=== PATIENT | male | born 1960 | race African-American/Black ===

== ENCOUNTER 2020-04-16 11:26 | Inpatient (IN) | payer OTHER ==
[~2020-04-16] VITALS: Ht 182.9 cm; Wt 81.9 kg
[2020-04-16] VITALS (21 sets, daily range): BP systolic 95–116; BP diastolic 62–73
[~2020-04-16 11:26] MED LIST: ADULT LOW DOSE81 MG PO; IBUPROFEN 800800 M1 PO; TOPROL XL25 MG PO; ZPAK PO
[2020-04-16 12:23] LABS: BASOPHILS 0.1 % (0.0-2.0); HEMATOCRIT 27.1 % (42.0-52.0); HEMOGLOBIN 8.9 gm/dL (14.0-18.0); LYMPHOCYTES 7.8 % (24.0-44.0); MCH 26.5 pg (26.0-34.0); MCHC 32.7 g/dL (28.0-37.0); MCV 81.1 fL (80.0-100.0); MONOCYTES 8.5 % (1.0-8.0); PLATELET COUNT 365 thou/uL (150-400); POLYS 83.6 % (36.0-66.0); RBC 3.35 mil/uL (4.50-6.00); RDW 15.4 % (10.5-14.5); WBC 19.1 thou/uL (4.0-11.0)
[2020-04-16 12:26] LABS: ANION GAP 8 mmol/L (7-16); BUN 19 mg/dL (7-18); CALCIUM 8.3 mg/dL (8.5-10.1); CHLORIDE 95 mmol/L (98-107); CO2 27 mmol/L (21-32); CREATININE 0.8 mg/dL (0.7-1.3); GLUCOSE 232 mg/dL (74-106); POTASSIUM 4.5 mmol/L (3.5-5.1); SODIUM 130 mmol/L (136-145)
[2020-04-16 12:33] LABS: INR 1.3; PROTIME 13.2 Seconds (9.3-11.4)
[2020-04-16 12:33] LABS: BE(vivo) 7.7 mmol/L (-2 to +3); HCO3 29.9 mmol/L (22.0-26.0); PCO2 33.5 mmHg (35.0-45.0); PO2 129.6 mmHg (80.0-100.0); pH 7.569 (7.360-7.450)
[2020-04-16 12:36] LABS: ALBUMIN 1.1 g/dL (3.4-5.0); MAGNESIUM 1.8 mg/dL (1.8-2.4); SGOT 149 U/L (15-37); SGPT 318 U/L (30-65); TOTAL BILIRUBIN 0.3 mg/dL (0.2-1.0); TOTAL PROTEIN 6.8 g/dL (6.4-8.2); TROPONIN-I <0.06 ng/mL (<0.06)
[2020-04-16 12:50] LABS: URINE BILIRUBIN NEGATIVE (Negative); URINE BLOOD 2+ (Negative); URINE CLARITY CLEAR; URINE COLOR YELLOW; URINE GLUCOSE-RANDOM* NEGATIVE (Negative); URINE KETONES NEGATIVE (Negative); URINE LEUKOCYTES-REFLEX TRACE (Negative); URINE NITRITE-REFLEX NEGATIVE (Negative); URINE PROTEIN (DIPSTICK) TRACE (Negative); URINE SPECIFIC GRAVITY 1.015 (1.005-1.035)
[2020-04-16 12:57] LABS: SQUAMOUS 4-10 Moderate /LPF (0-3)
[2020-04-16 12:58] LABS: AMORPHOUS URATES Few /LPF (None Seen); BACTERIA-REFLEX None Seen /HPF (None Seen); CASTS None Seen /LPF (None Seen); URINE RBC 3-10 Few /HPF (0-2); URINE WBC-REFLEX 0-5 Rare /HPF (0-5)
--- NOTE | 2020-04-16 13:50 | NUR ---
CONSULTED TO PLACE A CENTRAL LINE FOR A PATIENT IN ER WITH SEPSIS. ORDER AND CONSENT NOTED. A #5F TRIPLE LUMEN CENTRAL LINE WAS PLACED PER HOSPITAL POLICY. LINE WAS TRIMMED TO 25CM AND ADVANCED TO 7CM EXTERNAL. A STAT CHEXT XRAY COMFIRMED LINE IN GOOD POSITION AND LINE RELEASED FOR USE
--- NOTE | 2020-04-16 17:04 | NUR ---
1960-RECEIVED PT FROM Bryanna RODRÍGUEZ AMT UNFORMED YELLOW STOOL.COMPLETE BATH. MRSA SWAB SENT.--VW
--- NOTE | 2020-04-16 21:01 | NUR ---
2049 - PT VOMITTED A MODERATE AMOUNT OF YELLOW MOUCUS-LIKE EMESIS. ZOFRAN GIVEN. ORAL AND ET SUCTIONING PERFORMED. THICK, WHITE TRACHEAL SECRETIONS NOTED. ORAL CARE PROVIDED. PT IS ARROUSABLE TO VERBAL STIMULI AND OPENS HIS EYES WHEN HIS NAME IS CALLED. HE IS ABLE TO WEAKLY SQUEEZE RIGHT HAND AND WIGGLE RIGHT TOES ON COMMAND. DOES NOT MOVE LEFT ARM OR LEFT TOES ON COMMAND. PERRLA. ORAL TEMP 100.7. WILL CONTINUE TO MONITOR.
--- NOTE | 2020-04-16 22:29 | NUR ---
2224 - SPOKE WITH PT'S DAUGHTER (CARLOS DON). SHE WAS UPDATED ON PT STATUS AND POC. ALL QUESTIONS ANSWERED. SHE STATED THAT PT FELL IN DECEMBER 2019 AND SUFFERED A HEAD INJURY. PER DTR, HE WAS AT [facility] FOR ROUGHLY A MONTH, WHERE TRACH AND PEG TUBE WERE PLACED. HE WAS THEN SENT TO [facility]. 3 WEEKS AGO HE WAS MOVED TO [facility]. DTR EXPRESSED CONCERN FOR HIS CARE AT [facility] AND STATED HE DID NOT HAVE A BED SORE PRIOR TO ADMISSION TO THAT FACILITY. SHE STATED SHE HOPES TO MOVE HIM TO A DIFFERENT FACILITY SOON.
[2020-04-16] MEDS ORDERED: NORVASC 2.5 MG2.5 M1 PO (23:23)
[2020-04-16] MEDS ORDERED: LIPITOR10 MG PO (23:23)
[2020-04-16] MEDS ORDERED: ASCORBIC ACID500 MG PO (23:24)
[2020-04-16] MEDS ORDERED: CARVEDILOL25 MG PO (23:24)
[2020-04-16] MEDS ORDERED: FAMOTIDINE20 MG PO (23:24)
[2020-04-16] MEDS ORDERED: CLONIDINE HCL0.2 M2 PO (23:25)
[2020-04-16] MEDS ORDERED: DULCOLAX STOOL100 M1 PO (23:25)
[2020-04-16] MEDS ORDERED: VITAMIN B-1100 M2 PO (23:26)
[2020-04-16] MEDS ORDERED: KEPPRA100 MG/1 M PER TUBE (23:26)
[2020-04-16] MEDS ORDERED: BISACODYL10 MG RECTAL (23:27)
[2020-04-16] MEDS ORDERED: TYLENOL325 MG PO (23:29)
[2020-04-16] MEDS ORDERED: PULMICORT0.5 MG/2 M INH (23:33)
[2020-04-16] MEDS ORDERED: CHLORHEXIDINE118 ML PO (23:34)
[2020-04-16] MEDS ORDERED: HEPARIN 1,1000 UNIT/ SUBQ (23:36)
[2020-04-16] MEDS ORDERED: IPRAT-ALBUT 0.5-3 ML INH (23:46)
[2020-04-16] MEDS ORDERED: MULTIVITAM9 MG/15 M1 PER TUBE (23:47)
[2020-04-16] MEDS ORDERED: SANTYL OINTMENT30 G1 TOP (23:48)
[2020-04-16] MEDS ORDERED: ANTACID325 MG PER TUBE (23:50)
[2020-04-17] VITALS (40 sets, daily range): BP systolic 99–133; BP diastolic 61–81
--- NOTE | 2020-04-17 03:12 | NUR ---
PT HAS BEEN SLEEPING MOST OF THE NIGHT. HE DOES OPENS HIS EYES AND RESPOND TO VERBAL OR PAINFUL STIMULI. NO SEDATION NEEDED WHILE ON VENT. STRONG COUGH. MODERATE AMOUNT OF TRACHEAL SECRETIONS. HIGHEST TEMP SO FAR TONIGHT HAS BEEN 100.8. ST ON TELE, HR 100-110S. SBP >90 ALL SHIFT. IVF INFUSING ORDERED. COMPLETE BED BATH GIVEN. DRESSING CHANGED TO SACRAL DECUB ULCER; FOUL-SMELLING DRAINAGE NOTED. REPOSITIONED Q2H. FALL PRECAUTIONS IN PLACE. WRIST RESTRAINTS NOT NEEDED PT DOES NOT TRY TO DISCONNECT ANY MEDICAL EQUIPMENT. PROGRESSING SLOWLY TOWARD POC GOALS. WILL CONTINUE TO MONITOR FURTHER.
[2020-04-17 05:23] LABS: ABSOLUTE NEUTROPHILS 15.9 thou/uL (1.4-8.2); BASOPHILS 0.3 % (0.0-2.0); EOSINOPHILS 0.2 % (0.0-3.0); HEMATOCRIT 28.7 % (42.0-52.0); HEMOGLOBIN 9.3 gm/dL (14.0-18.0); LYMPHOCYTES 7.3 % (24.0-44.0); MCH 26.5 pg (26.0-34.0); MCHC 32.3 g/dL (28.0-37.0); MCV 82.1 fL (80.0-100.0); MONOCYTES 8.1 % (1.0-8.0); PLATELET COUNT 391 thou/uL (150-400); POLYS 84.1 % (36.0-66.0); WBC 18.8 thou/uL (4.0-11.0)
[2020-04-17 05:43] LABS: CREATININE 0.5 mg/dL (0.7-1.3)
[2020-04-17 06:02] LABS: POTASSIUM 3.2 mmol/L (3.5-5.1)
[2020-04-17 08:09] LABS: BE(vivo) 4.9 mmol/L (-2 to +3); HCO3 28.3 mmol/L (22.0-26.0); PCO2 37.1 mmHg (35.0-45.0); PO2 99.2 mmHg (80.0-100.0)
--- NOTE | 2020-04-17 13:01 | NUR ---
PER ISH MORRIS DC FROM [facility] ISOLATION
--- NOTE | 2020-04-17 19:36 | NUR ---
PT COVID (-) X1. [facility] DC ENHANCED PRECAUTIONS. SEEN BY WOUND CARE. PLAN FOR SURGERY TO EVAL TOMORROW. PAGED DR CRENSHAW TO START TUBE FEED AT 1830, NO RESPONSE. CIO TO DO DRESSING CHANGE ON SACRAL WOUND.
[2020-04-18] VITALS (39 sets, daily range): BP systolic 102–143; BP diastolic 62–91
[2020-04-18 05:24] LABS: ABSOLUTE NEUTROPHILS 12.9 thou/uL (1.4-8.2); BASOPHILS 0.1 % (0.0-2.0); EOSINOPHILS 0.5 % (0.0-3.0); HEMATOCRIT 27.4 % (42.0-52.0); HEMOGLOBIN 8.7 gm/dL (14.0-18.0); LYMPHOCYTES 9.3 % (24.0-44.0); MCH 26.4 pg (26.0-34.0); MCHC 31.9 g/dL (28.0-37.0); MCV 82.7 fL (80.0-100.0); MONOCYTES 7.3 % (1.0-8.0); PLATELET COUNT 399 thou/uL (150-400); POLYS 82.8 % (36.0-66.0); RBC 3.31 mil/uL (4.50-6.00); WBC 15.6 thou/uL (4.0-11.0)
[2020-04-18 05:31] LABS: BE(vivo) 0.5 mmol/L (-2 to +3); HCO3 23.4 mmol/L (22.0-26.0); PCO2 31.5 mmHg (35.0-45.0); PO2 156.5 mmHg (80.0-100.0); pH 7.488 (7.360-7.450); sO2 99.2 % (92.0-98.0)
[2020-04-18 05:41] LABS: CALCIUM 7.7 mg/dL (8.5-10.1); CREATININE 0.6 mg/dL (0.7-1.3); PHOSPHORUS 3.4 mg/dL (2.5-4.9)
[2020-04-18 05:45] LABS: POTASSIUM 2.8 mmol/L (3.5-5.1)
--- NOTE | 2020-04-18 06:26 | NUR ---
WET TO DRY DRESSING DONE TO HIS SACRAL WOUND.OPENS EYES.REPOSITIONED.POTASIUM LEVEL 2.8 THIS AM.ORDER RECEIVED FROM PROPERTY MAN.MONITOR SHOWS SINUS TACH.POC CONTINUED.
--- NOTE | 2020-04-18 07:51 | EKG ---
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 1960 Requested By: Leander Guerra Order Number: [id number] MD: Gonzalez Rivas Measurements Intervals [place] Rate: 133 P: 46 ND: 137 QRS: 2 QRSD: 70 T: 55 QT: 305 QTc: 454 Interpretive Statements Sinus tachycardia Left atrial enlargement Abnormal R-wave progression, early transition Artifact in lead(s) I,III,aVR,aVL No previous ECG available for comparison Electronically Signed On 04-18-2020 7:51:24 CDT by Gonzalez Rivas [email or web address] <ELECTRONICALLY SIGNED> By: Gonzalez Rivas MD, [facility] 04/18/20 0751 1154 1154 Gonzalez Rivas MD, [facility] /EPI
--- NOTE | 2020-04-18 10:00 | NUR ---
0700 RECEIVED REPORT FROM ASHLEY RAMIREZ. [address] FOR CT OF ABD. [address]
--- NOTE | 2020-04-18 11:32 | NUR ---
Please clarify if pt was taking any oral intake prior to admission. If needs to be on sole enteral nutrition, recommend formula Pivot 1.5 at 65ml/hr. Defer fluid needs to physician
--- NOTE | 2020-04-18 16:05 | NUR ---
chart review. report from bedside nurse, from [facility]. cm consult family wants to look for new place for yue. cm left message with daughter kamila requested call back. need to verify if pt is in ltc or r[facility] side of [facility]. unable to visit with pt rt on vent. daughter called cm back " he is 24hr care, wish he could do apartment side but he needs to much. use wheel chair, shower chair. hospital bed, grab bars, incont of b and b. facility manage medication and meals. told that he will be moving to [place] location. thank you for calling"/daughter and chart. will cont following as needed for dc needs.
--- NOTE | 2020-04-18 17:28 | NUR ---
SPOKE WITH DAUGHTER CARLOS, UPDATED HER TO HER FATHER'S STATUS AND PLAN OF CARE FOR THE WEEK. QUESTIONS ANSWERED AND REASSURANCE GIVEN.
--- NOTE | 2020-04-18 23:16 | NUR ---
ASSUMED PT CAREAT 1900, PT IS AWAKE, ALERT, NON VERBAL AND UNABLE TO FOLLOW COMMANDS, ASSESSMENTS CHARTED, VSS, ST ON THE MONITOR, DRESSING CHANGE COMPLETED, PAIN MEDICATION ADMINISTERED PRN ORDERED, PT TRANSFERRED TO CCU ROOM 216, REMAINS ON A VENTILLATOR, NO ISSUES NOTED
--- NOTE | 2020-04-19 02:07 | NUR ---
PT TRANSFERED FROM ICU ACCOMPANIED BY STAFF VIA BED.PT ON VENT/TRACH.A/O TO SELF,NON-VERBAL, LEFT SIDED HEMIPARESIS,DO FOLLOW SIMPLE COMMANDS,IN NO ACUTE DISTRESS.OPEN EYES SPONTANEOUSLY.ON MONITOR SINUS TACHY.ABD SOFT,NON TENDER,ACTVE,BOWEL SOUNDS PRESENT L5LWAHH. PEG TUBE PRESENT,CRAMPED.NPO AFTER MIDNOC FOR POSSIBLE WOUND DEBRIDEMENT TODAY.LYONS DD, YELLOW URINE.SACRAL WOUND COVERED WITH DRESSING,CDI,RIGHT HIP W/FOAM DRESSING CDI,LEFT DECUB W/FOAM DRESSING,CDI.PRAFO BOOTS IN PLACE.IVF INFUSING PER ORDERS,REPLACING POTASSIUM.PLAN IS TO CONT WITH ANTIBIOTICS W/POSSIBLE WOUND DEBRIDEMENT TODAY.NEB TX PER RT.WILL CONT TO MONITOR PER POC.
[2020-04-19 04:36] VITALS: BP 144/84
[2020-04-19 06:40] LABS: CREATININE 0.5 mg/dL (0.7-1.3); POTASSIUM 3.4 mmol/L (3.5-5.1)
[2020-04-19 07:05] LABS: BE(vivo) 1.1 mmol/L (-2 to +3); HCO3 24.6 mmol/L (22.0-26.0); PCO2 35.2 mmHg (35.0-45.0); PO2 109.2 mmHg (80.0-100.0); pH 7.463 (7.360-7.450); sO2 98.3 % (92.0-98.0)
[2020-04-19 09:30] VITALS: BP 97/70
--- NOTE | 2020-04-19 09:33 | HC ---
[facility] [place] [address] CONSULTATION Name: KELTON WANG Room #: 216-P [facility] IN .R.#: [id number] Admission: 04/16/20 Attend Phys: Amado Vidales Discharge: Date of : 60 Report #: [id number] THIS REPORT FOR: cc: SAMUEL - Elidia family physician/PCP SAMUEL - Elidia family physician/PCP Teddy Montero MD ~ CC: SAMUEL physician/PCP Amado Vidales DATE OF SERVICE: 04/17/2020 WOUND CARE CONSULTATION NOTE REASON FOR CONSULTATION: Necrotic sacral pressure sore in a patient with respiratory failure, on tracheostomy with sepsis and diabetes mellitus type 2. HISTORY OF PRESENT ILLNESS: The patient is a gentleman with diabetes mellitus type 2, chronic respiratory failure with tracheostomy, who was admitted for sepsis and hypoxemia. The patient is chronically immobile with paraplegia. The patient is clinically septic with respiratory failure and shock. On admission, he was admitted to the ICU. Wound care is consulted due to a large necrotic sacral pressure sore noted. Medical problems include anemia, elevated liver function tests, alcohol abuse, protein-calorie malnutrition, chronic tracheostomy, uncontrolled diabetes mellitus. ALLERGIES: None known. MEDICATIONS: Include albuterol, famotidine, vancomycin, Zofran, meropenem, insulin. PHYSICAL EXAMINATION: GENERAL: Shows an alert gentleman with tracheostomy, on a ventilator. He is paraplegic. LUNGS: He has coarse respiratory secretions. ABDOMEN: Soft with a PEG tube present. Gant bladder catheter. The patient has no colostomy. EXTREMITIES: Examination of the right hip shows a chronic appearing superficial stage 3 pressure ulcer measuring approximately 6 x 3 cm with healthy pink granulation tissue and minimal drainage. Examination of the patient's back shows a very large significant necrotic stage 4 sacral pressure ulcer measuring approximately 10 x 10 cm, the base of which has moist foul smelling necrotic black eschar and foul smelling drainage. Lower extremity exam shows a small unstageable pressure ulcer of the left lateral malleolus with a small blister. This appears minor. The patient is paraplegic. IMPRESSION: [facility] [address] [place] [address] CONSULTATION Name: KELTON WANG Room #: 216-P [facility] IN M.R.#: [id number] Admission: 04/16/20 Attend Phys: Amado Vidales Discharge: Date of : 60 Report #: [id number] 1. Paraplegia with chronic immobility. 2. Respiratory failure with tracheostomy, hypoxemia. 3. Severe protein-calorie malnutrition. 4. Diabetes mellitus type 2 with skin ulcer. 5. Sacral stage 4 pressure ulcer with necrosis, may be causing his sepsis. PLAN: 1. I have ordered half strength Dakin's Kerlix pack to be changed twice daily. Dr. Jani Tovar Surgery team has been consulted. This wound will require surgical debridement and diverting colostomy would be advisable. 2. Stage 3 chronic pressure ulcer of the right hip, ordered Xeroform and a foam border. 3. Blistered unstageable pressure ulcer of the left lateral malleolus, ordered foam border and foam boots. 4. History of alcohol use and elevated liver enzymes. Wound care team will follow. As stated sacral wound is necrotic may be a source of sepsis, will require surgical debridement during colostomy would be advised to improve wound care. <ELECTRONICALLY SIGNED> By: Teddy Montero MD 04/19/20 0933 1224 1247 Teddy Montero MD /nt
[2020-04-19 11:18] VITALS: BP 129/69
[2020-04-19 16:05] VITALS: BP 124/67
[2020-04-19 20:34] VITALS: BP 118/63
[2020-04-19 21:49] VITALS: BP 127/80
[2020-04-20] VITALS (8 sets, daily range): BP systolic 119–149; BP diastolic 7–88
--- NOTE | 2020-04-20 03:46 | NUR ---
ASSESSMENT DOCUMENTED,PT BEEN RESTING IN NO ACUTE DISTRESS,ON VENT VIA TRACH,SPO2 100%.SUCTIONED NEEDED.SINUS TACHY ON MONITOR.LYONS DD,YELLOW URINE W/SEDEIMENTS.PRESSURE ULCERS TO SACRAL,RIGHT HIP AND LEFT ANKLE COVERED WITH DRESSING,CDI.TUBE FEEDINGS INFUSING AT 50CC/HR WITH A GOAL OF 65CC/HR.LESS THAN 30CC REDUAL OBTAINED.IVF.POSSIBLE DISCHARGE IN TWO TO THREE DAYS.WILL CONT TO MONITOR PER POC.
[2020-04-20 05:49] LABS: HEMATOCRIT 21.9 % (42.0-52.0); HEMOGLOBIN 7.1 gm/dL (14.0-18.0); MCH 26.8 pg (26.0-34.0); MCHC 32.6 g/dL (28.0-37.0); MCV 82.3 fL (80.0-100.0); RBC 2.66 mil/uL (4.50-6.00); RDW 14.8 % (10.5-14.5); WBC 15.3 thou/uL (4.0-11.0)
[2020-04-20 05:50] LABS: ALBUMIN 1.1 g/dL (3.4-5.0); CALCIUM 7.3 mg/dL (8.5-10.1); CREATININE 0.6 mg/dL (0.7-1.3); MAGNESIUM 1.3 mg/dL (1.8-2.4); POTASSIUM 3.3 mmol/L (3.5-5.1); TOTAL BILIRUBIN 0.3 mg/dL (0.2-1.0); TOTAL PROTEIN 5.5 g/dL (6.4-8.2)
[2020-04-20 16:29] LABS: HEMOGLOBIN 6.6 gm/dL (14.0-18.0); WBC 13.8 thou/uL (4.0-11.0)
[2020-04-20 16:31] LABS: HEMATOCRIT 20.7 % (42.0-52.0); MCHC 31.7 g/dL (28.0-37.0); MCV 82.1 fL (80.0-100.0); RBC 2.53 mil/uL (4.50-6.00); RDW 14.9 % (10.5-14.5)
--- NOTE | 2020-04-20 17:44 | NUR ---
RECEIVED PT'S CARE AROUND 0735; PT. ON BED; ON VENTILATOR; O2 SAT 100%; PT. AWAKE; ABLE TO MOVE RUE; FEEDING GOING UP 50 ML/H; DURING AM ASSESSMENT PT. AWAKE ALERT; FOLLOW COMMANDS; ST ON THE MONITOR; AM MEDICATION GIVEN; FEEDING TITRATE TO 60 ML/H; 5 ML/ RESIDUAL; WOUND CARE PERFORMED X2; HAD 2 LIQUIDS STOOLS; PER WOUND CARE FECAL MANAGEMENT NEEDED; INSERTED IT; FEEDING CHANGED; NO RESIDUAL DURING THE AFTERNOON; PER DIETITIAN RECOMMENDED FLUSHES 170 ML/Q4H; PHYSICIAN NOTIFIED; HMG 6.6 DROP FROM AM; PHYSICIAN NOTIFIED; NO NEW ORDERS; MONITORING; LOW AIR PUMP REQUESTED & APPLIED; TURNED FROM SIDE TO SIDE THROUGH THE DAY; MAG & K REPLACED; ASSESSMENT CHARGED; FOLLOWING POC; WILL PASS ON REPORT;
[2020-04-20 19:02] LABS: HEMATOCRIT 20.6 % (42.0-52.0)
[2020-04-20 19:08] LABS: HEMOGLOBIN 6.6 gm/dL (14.0-18.0)
--- NOTE | 2020-04-20 21:09 | NUR ---
PT IS ORIENTED X1. PT DAUGHTER CARLOS DON (DPOA) CONTACTED @[id number]. DAUGHTER GAVE CONSENT TO TRANSFUSE BLOOD ORDERED
[2020-04-21] VITALS: BP 140/92
[2020-04-21 03:38] LABS: HEMATOCRIT 24.7 % (42.0-52.0); HEMOGLOBIN 8.1 gm/dL (14.0-18.0); MCH 27.2 pg (26.0-34.0); MCHC 32.9 g/dL (28.0-37.0); MCV 82.6 fL (80.0-100.0); RBC 2.99 mil/uL (4.50-6.00); RDW 15.3 % (10.5-14.5); WBC 10.3 thou/uL (4.0-11.0)
[2020-04-21 03:51] LABS: ALBUMIN 1.2 g/dL (3.4-5.0); CALCIUM 7.5 mg/dL (8.5-10.1); CREATININE 0.5 mg/dL (0.7-1.3); MAGNESIUM 1.5 mg/dL (1.8-2.4); TOTAL BILIRUBIN 0.4 mg/dL (0.2-1.0); TOTAL PROTEIN 5.5 g/dL (6.4-8.2)
[2020-04-21 03:56] LABS: POTASSIUM 2.8 mmol/L (3.5-5.1)
[2020-04-21 04:00] VITALS: BP 138/92
--- NOTE | 2020-04-21 05:40 | NUR ---
PT ALERT BUT NOT ORIENTED. NON-VERBAL. PT NO S/S OF PAIN DURING THIS SHIFT. PT IS ON A VENT. PT TRANSFUSED 1 UNIT DURING THE NIGHT R/T HGB 6.6 AFTER TRANSFUSION HGB 8.1. PT K = 2.8 AND MG 1.3 WITH AM LAB. PROJECT FINANCIAL ANALYST NOTIFIED ORDER OBTAINED TO GIVE KCL 60 MG PER PEG IN DOSES AND RECHECK HGB & MG AFTERWARDS. FIRST DOSE GIVEN AT 0500HRS. ORDER TO GIVE 2MG MG SULFATE X1 WAS ALSO OBTAINED. MEDS GIVEN. SACRAL WOUND TREATMENT COMPLETED PER ORDERS DURING THIS SHIFT. PT TURNED AND REPO Q2H. PT NOTED TO ATTEMPT PULLING THE TRACH OUT. CONTINUING TO MONTITOR.
[2020-04-21 08:38] VITALS: BP 134/81
[2020-04-21 10:30] LABS: MAGNESIUM 1.6 mg/dL (1.8-2.4); POTASSIUM 3.7 mmol/L (3.5-5.1)
[2020-04-21 11:10] VITALS: BP 151/99
--- NOTE | 2020-04-21 13:01 | NUR ---
FAXED REFERRAL TO [facility] SPOKE WITH TONY IN ADM SHE RECEIVED REFERRAL AND WILL REVIEW. DP TO FOLLOW.
--- NOTE | 2020-04-21 15:08 | PATH ---
[facility] [address] [place] [address] PATHOLOGY RPT PROCEDURE Name: PEDRO LUIS VELASCO Room #: 216-P [facility] IN M.R.#: [id number] Admission: 04/16/20 Date of : 60 Discharge: Report #: [id number] Path Case #: [id number] [facility] Accession Number: [id number] . 01 Material submitted: . sacrum - SACRAL DEBRIDEMENT . 01 Clinical history: . Sacral decubitus ulcer . 02 Diagnosis: Sacral debridement: - Skeletal muscle and soft tissue showing marked acute inflammation along with fibrinoid degeneration, history of sacral decubitus ulcer. (IUV:pit 04/21/2020) QTP 04/21/2020 1313 Local . 02 Electronically signed: . Giovanna Davison MD, Pathologist NPI- [id number] . 01 Gross description: . The specimen is received in formalin, labeled "Pedro Luis Velasco, sacral debridement". Received is a segment of dusky orr-almonte skin with attached underlying necrotic-appearing fibroadipose tissue measuring 8.0 x 8.0 x 4.5 cm in greatest dimensions. Sectioning reveals yellow-almonte to dusky pink-orr, necrotic-appearing cut surfaces. The specimen is submitted representatively in cassette A1. (CAA; 04/20/2020) QA/QA 04/20/2020 1616 Local . 02 Pathologist provided ICD-10: M65.9, M60.80 . 02 CPT . 283878 Specimen Comment: A courtesy copy of this report has been sent to [phone] Specimen Comment: [phone] Specimen Comment: Report sent to / DR CRENSHAW Performed at: [address], [place] [id number] MD Wade Larry MD Phone: [phone] Performed at: [address] [id number] [address] [address] PATHOLOGY RPT PROCEDURE Name: PEDRO LUIS VELASCO Room #: 216-P ADM IN M.R.#: [id number] Admission: 04/16/20 Date of : 60 Discharge: Report #: [id number] Path Case #: [id number] MD Giovanna Davison MD Phone: [phone]
[2020-04-21 15:50] VITALS: BP 142/94
--- NOTE | 2020-04-21 16:54 | NUR ---
Case discussed with the care team. [facility] level of care indicated for vent weaning as the pt can not return to his longterm on a vent. He is also in need of ivatb and wound care. The attending spoke with pt's dtr and she is agreeable to [facility] referral ([place] ). Dc raw material planner faxed the referral. Referral discussed with the [facility] liason. They are reviewing and would need auth. They will need to know a duration of his iv atb. Will f/u tomorrow. RN concerned that pt is very distended and may need US.
--- NOTE | 2020-04-21 18:45 | NUR ---
RECEIVED PT'S CARE AROUND 729; PT. ON BED; RESTING WITH EYES CLOSED; O2 SAT 100; ST ON THE MONITOR; DURING ASSESSMENT ALERT TO PERSON; AM MEDICATIONS GIVEN; WOUND CARE PERFORMED BY NURSE WOUND; COMPLETE BED CHANGED; INCREASE DISTENTION NOTICED OVER ABDOMEN; [facility] NOTIFIED DURING ROUNDING; NO NEW ORDER; DR. HICKS NOTIFIED ABOUT POC & NEED OF COMMUNICATING WITH DAUGHTER FOR [facility]; ST. UNDERSTANDING; ST ON THE MONITOR; DURING THE AFTERNOON RECEIVED CALL FROM DR. BRAVO; ORDERS RECEIVED; PT. SCHEDULE FOR PROCEDURE TOMORROW; TRIED TO CONTACT DAUGHTER TO OBTAINED CONSENT; NO ANSWER; VOICE MAIL LEFT; NO CALL BACK; WILL PASS ON REPORT; PT. TURNED FROM SIDE TO SIDE; FEEDING TUBE STARTED; NO RESIDUAL THROUGH THE DAY; ASSESSMENT CHARGED; FOLLOWING POC; WILL PASS ON REPORT;
[2020-04-21 20:40] VITALS: BP 152/88
[2020-04-22 03:09] VITALS: BP 152/87
[2020-04-22 05:56] LABS: HEMATOCRIT 24.8 % (42.0-52.0); HEMOGLOBIN 8.2 gm/dL (14.0-18.0); MCH 27.5 pg (26.0-34.0); MCHC 33.3 g/dL (28.0-37.0); MCV 82.7 fL (80.0-100.0); RDW 14.9 % (10.5-14.5); WBC 10.6 thou/uL (4.0-11.0)
[2020-04-22 06:12] LABS: CALCIUM 8.1 mg/dL (8.5-10.1); CREATININE 0.4 mg/dL (0.7-1.3); MAGNESIUM 1.7 mg/dL (1.8-2.4); POTASSIUM 3.4 mmol/L (3.5-5.1)
--- NOTE | 2020-04-22 07:28 | NUR ---
OSTOMY CARE NOTE; ORDERED RECEIVED LATE YESTERDAY FOR STOMA MARKING, SURGERY NURSES HERE NOW AND CALLING DR BRAVO, PER DR SANCHEZ NEED TO [place] STOMA SITE, WILL FOLLOW PT AFTER SURGERY FOR OSTOMY CARE
--- NOTE | 2020-04-22 07:51 | NUR ---
ASSUMED PT CARE AT 1900, PT IS ALERT TO PERSON, NONVERBAL, SR/ST ON THE MONITOR, REMAINS ON VENT, 02SATS 100% TUBE FEEDING TURNED OFF AT MIDNIGHT FOR PROCEDURE THIS MORNING, DRESSING CHANGE COMPLETED, CALLED DAUGHTER TO OBTAIN CONSENT FOR PROCEDURE TODAY, MEDICATIONS GIVEN ORDERED, VSS. BS STABLE, NO ISSUES OVERNIGHT, PASSED ON REPORT
[2020-04-22 09:28] VITALS: BP 144/94
--- NOTE | 2020-04-22 09:54 | NUR ---
OSTOMY CARE; PT BACK FROM SURGERY, POUCH INTACT, STOMA BUDDED, VIABLE, BEEFY RED, SUPPORT BRIGE IN PLACE, SUPPLIES PLACED AT BS, WILL FOLLOW
[2020-04-22 11:40] VITALS: BP 156/87
--- NOTE | 2020-04-22 14:17 | NUR ---
Pt has surgery for diverting ostomy this am. Dc digital sales planner has faxed clinical update to the [facility]. [facility] can accept the pt once medically cleared by surgery and pending insurance auth. They have submitted for ins auth for possible weekend admission. [facility] form on the chart for ambulance transport should the pt be ready for dc to [facility]ac this weekend. Their liason can be reached at [phone]. A chart copy would be needed and dtr will need to be updated as to dc arrangements and time of transfer. Will follow.
[2020-04-22 16:41] VITALS: BP 125/82
[2020-04-22 20:00] VITALS: BP 143/99
[2020-04-23 00:05] VITALS: BP 125/72
[2020-04-23 04:00] VITALS: BP 121/69
[2020-04-23 06:31] LABS: CALCIUM 7.8 mg/dL (8.5-10.1); CREATININE 0.5 mg/dL (0.7-1.3); MAGNESIUM 1.4 mg/dL (1.8-2.4); PHOSPHORUS 2.5 mg/dL (2.5-4.9); POTASSIUM 3.9 mmol/L (3.5-5.1)
[2020-04-23 06:34] LABS: HEMATOCRIT 26.1 % (42.0-52.0); HEMOGLOBIN 8.6 gm/dL (14.0-18.0); MCH 27.3 pg (26.0-34.0); MCV 82.6 fL (80.0-100.0); PLATELET COUNT 432 thou/uL (150-400); RBC 3.16 mil/uL (4.50-6.00); RDW 15.1 % (10.5-14.5)
[2020-04-23 07:36] VITALS: BP 118/83
[2020-04-23 11:27] VITALS: BP 145/93
[2020-04-23 11:53] LABS: HEMATOCRIT 26.8 % (42.0-52.0); HEMOGLOBIN 9.1 gm/dL (14.0-18.0)
[2020-04-23 15:54] VITALS: BP 156/103
--- NOTE | 2020-04-23 16:31 | NUR ---
PT CARE ASSUMED APPROX 0700. ASSESSMENTS CHARTED. NO APPARENT PAIN NOTED. VSS. BS WNL. KUB SHOWED ILEUS. POC UPDATED. TONY WITH [facility] GIVEN CLINICAL UPDATE THAT DISCHARGE WILL NEED TO BE HELD OFF TODAY. PT TOLERATING POC. TURNING Q2 HRS AND PRN. NO DISTRESS NOTED.
--- NOTE | 2020-04-23 17:33 | NUR ---
DR JUAN AND SURGEON BOTH MADE AWARE DURING ROUNDS OF PT'S COLOSTOMY OUTPUT AMOUNT AND COLOR. NO CONCERNS FROM DRs. NO NEW ORDERS.
[2020-04-23 18:47] VITALS: BP 132/76
[2020-04-24] VITALS (7 sets, daily range): BP systolic 13–155; BP diastolic 77–96
--- NOTE | 2020-04-24 01:25 | NUR ---
PT IS AWAKE. LUNGS DIMINISHED. REMAINS ON THE VENT. SINUS TACH ON THE BIOINFORMATICIAN. WOUNDS CARE DONE AND DRESSED AND CHANGED. FECAL MANAGEMENT SYSTEM IN PLACE. AND LYONS PRESENT. TOLERATING TUBE FEEDINGS NO RESIDUAL NOTED. RESTING COMFORTABLY ATEMPTING TO SLEEP. TURN Q 2 HOURS FOR CARE OF PT. BOOTS ON BILAERAL WITH SCDS ON . WILL CONTINUE TO ASSESS AND MONITOR PER NURSING. REMAINS ON THE VENT. MINIMAL SECREATIONS WITH SUCTIONING.
--- NOTE | 2020-04-24 04:22 | NUR ---
PT WOUNDS HAVE BEEN CHANGED AND DRESSING DONE. TURN Q 2 HOURS WITH VENT MSNAGEMT HRMRNY. OPENS HIS EYES. ABDFOMRN ID TOUNF SNF BBOERL SOUNFFS AND TOLERATING TUBE FRREDING OK. CALL LIGHT THIN REACH NI NNER ASSSTTANCE. NO ISSUES OR CONERN NOTED PER HAYLEY
[2020-04-24 05:14] LABS: ABSOLUTE NEUTROPHILS 7.3 thou/uL (1.4-8.2); BASOPHILS 0.2 % (0.0-2.0); EOSINOPHILS 2.1 % (0.0-3.0); HEMATOCRIT 25.2 % (42.0-52.0); HEMOGLOBIN 8.4 gm/dL (14.0-18.0); LYMPHOCYTES 17.7 % (24.0-44.0); MCH 27.5 pg (26.0-34.0); MCHC 33.3 g/dL (28.0-37.0); MCV 82.6 fL (80.0-100.0); PLATELET COUNT 418 thou/uL (150-400); RBC 3.05 mil/uL (4.50-6.00)
[2020-04-24 05:19] LABS: ALBUMIN 1.5 g/dL (3.4-5.0); CALCIUM 8.1 mg/dL (8.5-10.1); CREATININE 0.5 mg/dL (0.7-1.3); MAGNESIUM 1.6 mg/dL (1.8-2.4); POTASSIUM 3.7 mmol/L (3.5-5.1); TOTAL BILIRUBIN 0.2 mg/dL (0.2-1.0); TOTAL PROTEIN 6.2 g/dL (6.4-8.2)
--- NOTE | 2020-04-24 16:40 | NUR ---
PT CARE ASSUMED APPROX 0700. ASSESSMENTS CHARTED. PT APPEARED TO BE IN PAIN EARLIER THIS SHIFT. PAIN SEEMINGLY MANAGED BY CURRENT POC. VSS. TOLERATING POC. TURNING PT Q2 HRS AND PRN. TUBE FEEDING STOPPED AFTER NEWEST KUB RESULTS. SURGEON SAW PT'S STOMA AND ACKNOWLEDGES MORE PROTRUSION AND COLOR CHANGE BUT SAYS THERE'S NO NEED FOR CONCERNS AT THIS TIME. HE IS ALSO AGREAABLE TO CURRENT POC TO MANAGE ILEUS WELL GI DR. NO BOWEL MOVEMENT AFTER SUPPOSITORY BUT PT PASSING FLATUS. NO DISTRESS NOTED.
--- NOTE | 2020-04-24 23:21 | NUR ---
PATIENTS CARES WERE ASSUMED AT SHIFT CHANGE. PATIENT WAS ASSESSED AND MEDS WERE PASSED. PATIENT IS UNABLE TO FIX AND FOLLOW. PATIENT IS NONVERBAL. VENT SETTING HAVE NOT BEEN CHANGED, HOURLY ROUNDS DONE. THE BED IS IN A LOW AND LOCKED POSITION
--- NOTE | 2020-04-24 23:44 | NUR ---
PATIENTS CARES WERE PASSED TO ON COMING RN. ALL CARES UP TO DATE AT THE TIME PATIENT WAS PASSED. PATIENT CARES PASSED TO JAMES SWEENEY
[2020-04-25 02:03] LABS: HEMOGLOBIN 8.3 gm/dL (14.0-18.0); MCH 26.6 pg (26.0-34.0); MCHC 32.1 g/dL (28.0-37.0); MCV 82.8 fL (80.0-100.0); RBC 3.13 mil/uL (4.50-6.00)
[2020-04-25 02:11] LABS: CALCIUM 8.4 mg/dL (8.5-10.1); CREATININE 0.4 mg/dL (0.7-1.3); MAGNESIUM 1.5 mg/dL (1.8-2.4); PHOSPHORUS 3.6 mg/dL (2.5-4.9); POTASSIUM 3.5 mmol/L (3.5-5.1)
[2020-04-25 05:10] VITALS: BP 138/83
[2020-04-25 07:30] VITALS: BP 143/85
--- NOTE | 2020-04-25 09:38 | NUR ---
OSTOMY CARE; POUCH EDGES LOOSE, NEW POUCH RENY 2 PIECE SYSTEM APPLIED W/ ADAPT RING UNDER WAFER W/ STOMA PASTE, STOMA RED VIABLE BUDDED, STOMA SUPPORT BRIDGE IN PLACE, NO STOOL YET, PERISTOMA SKIN INTACT, REMAINS ON VENT, COOPERATIVE W/ CARE, SUPPLIES PLACED AT BS RECOMMENDATIONS; CHANGE POUCH Q 3-4 DAYS AND PRN,REMOVE STOMA SUPPORT BRIDGE PER ORDERS DR BRAVO SENIOR POLICY ANALYST AWARE
[2020-04-25 12:00] VITALS: BP 149/98
--- NOTE | 2020-04-25 16:49 | NUR ---
PT CARE ASSUMED APPROX 0700. ASSESSMENTS CHARTED. PT DOES NOT APPEAR TO BE IN PAIN TODAY AND VSS. TOLERATING VENT AND CHANGES MADE TO POC. TURNING PT Q2 HRS AND PRN. CLINICAL UPDATE GIVEN TO PT'S DAUGHTER. SHE DENIES QUESTIONS AFTER. NO DISTRESS NOTED.
[2020-04-25 17:00] VITALS: BP 149/99
[2020-04-25 22:40] VITALS: BP 173/101
[2020-04-26 04:00] VITALS: BP 121/85
--- NOTE | 2020-04-26 05:58 | NUR ---
PT RESTED THROUGH THE NIGHT. VSS. NO SIGNS OF DISTRESS. SACRAL WOULD CARE COMPLETED. Q2 TURNS. NO OTHER CONCERNS NOTED. MINIMAL SACTION NEED. WILL CONTINUE TO MONITOR.
[2020-04-26 08:43] VITALS: BP 152/96
[2020-04-26 11:42] VITALS: BP 16/103
[2020-04-26 16:51] VITALS: BP 152/91
--- NOTE | 2020-04-26 16:54 | NUR ---
PT CARE ASSUMED APPROX 0700. ASSESSMENTS CHARTED. NO APPARENT PAIN NOTED. VSS. TURNING PT Q2HRS AND PRN. WOUND CARE DONE PER ORDER. ABD DISTENDED BUT SOFTER TODAY. TRICKLE TUBE FEEDINGS TOLERATED. PT PASSING GAS THROUGH OSTOMY. NO ACUTE CHANGES NOTED. NO DISTRESS NOTED.
[2020-04-26 20:23] VITALS: BP 151/101
[2020-04-27 04:31] VITALS: BP 149/98
--- NOTE | 2020-04-27 07:50 | NUR ---
ASSUMED PATIENT CARE AT 1845. VITAL SIGNS STABLE WITH NURSE NOT PERCEIVING ANY PAIN ON BEHALF OF PATIENT. BREATHING STABLE ON VENTILATOR EVIDENCED BY ASSESSMENTS AND CONTINUOUS SATURATION MONITORING. COLOSTOMY STILL NOT PRODUCING FECES. APPROXIMATELY 150 CC'S OF GASTROINTESTINAL FLUID PRODUCED. WOUND CARE AND TURNS PER PROVIDER ORDERS. CONTINUE PLAN OF CARE.
[2020-04-27 08:04] VITALS: BP 152/95
--- NOTE | 2020-04-27 08:59 | NUR ---
OSTOMY CARE; STOMA SUPPORT BRIDGE REMOVED PER ORDERS DR BRAVO, STOMA BEEFY RED, VIABLE, BUDDED, NO STOOL YET, PASSING FLATUS, NEW POUCH RENY 2 PIECE SYSTEM CUT TO FIT APPLIED W/ ADAPT RING UNDER WAFER, SLEEPING, COOPERATIVE, SUPPLIES AT BS, WILL CONT TO FOLLOW RECOMMENDATIONS; CHANGE POUCH Q3-5 DAYS AND PRN, 2PIECE RENY SYSTEM ASSET MANAGEMENT LEAD AWARE
--- NOTE | 2020-04-27 10:09 | NUR ---
TF remains trickle feed due ileus. Noting decreasing adominal distention. If unable to start increasing TF rate, then would recommend change IVF to clinimix PPN at 75ml/hr as pt is very malnourished and with wounds.
[2020-04-27 11:28] VITALS: BP 149/104
--- NOTE | 2020-04-27 15:13 | NUR ---
SPOKE WITH TONY IN ADM AT [facility] SHE REQUESTED THE [facility] REC[facility] PHYSIC[facility] [employer] NOTES FAXED THEM AND RECEIVED CONFIRMATION. DP TO FOLLOW.
--- NOTE | 2020-04-27 16:45 | NUR ---
PT CARE ASSUMED APPROX 0700. ASSESSMENTS CHARTED. NO APPARENT PAIN NOTED. PT TOLERATING CPAP AND POC. TURNING PT Q2 HRS AND PRN. WOUND CARE COMPLETED PER ORDERS. NO BM NOTED THIS SHIFT. PT ABD SOFT. TUBE FEEDINGS INCREASED AND PT TOLERATING. NO DISTRESS NOTED.
[2020-04-27 17:03] VITALS: BP 164/108
[2020-04-27 20:58] VITALS: BP 165/108
[2020-04-27 23:40] VITALS: BP 166/116
[2020-04-28 00:36] VITALS: BP 166/116
[2020-04-28 05:04] LABS: CALCIUM 8.2 mg/dL (8.5-10.1); CREATININE 0.5 mg/dL (0.7-1.3); MAGNESIUM 1.3 mg/dL (1.8-2.4); POTASSIUM 3.6 mmol/L (3.5-5.1)
--- NOTE | 2020-04-28 05:08 | NUR ---
patients care was assumed at shift change. patient was assessed and meds were passed. patient is a nonverbal gentalmen. his b/p and heart rate was high starting about 1999. call [facility] to get some medication. the hospitalist need to address this. this man has been her several weeks with no attention to heart rate or b/p. rounds were made. sat in front of his room this shift. the bed is in a low and locked position hourly rounds were made
[2020-04-28 05:11] VITALS: BP 151/92
[2020-04-28 05:54] LABS: HEMATOCRIT 24.4 % (42.0-52.0); HEMOGLOBIN 8.1 gm/dL (14.0-18.0); MCH 27.6 pg (26.0-34.0); MCHC 33.3 g/dL (28.0-37.0); MCV 82.9 fL (80.0-100.0); RBC 2.94 mil/uL (4.50-6.00); RDW 15.6 % (10.5-14.5); WBC 7.5 thou/uL (4.0-11.0)
[2020-04-28 07:56] VITALS: BP 154/93
--- NOTE | 2020-04-28 09:41 | NUR ---
OSTOMY CARE; POUCH INTACT, NO LEAKAGE, NO STOOL YET, ABD SOFT, STOMA REMAINS PINKISH RED VIABLE BUDDED, INFO AND SUPPLIES AT BS RECOMMENDATIONS; CONT OSTOMY CARE W/ RENY APPLIANCES, CHANGING Q3-5 DAYS AND PRN MODULAR HOME CREW MEMBER AWARE
[2020-04-28 11:15] VITALS: BP 154/97
--- NOTE | 2020-04-28 13:57 | NUR ---
FAXED CLINICAL UPDATE TO [facility] RECEIVED CONFIRMATION AND LEFT MSG WITH TONY IN ADM THAT PT IS NOT DISCHARGING TODAY. DP TO FOLLOW.
[2020-04-28 15:25] VITALS: BP 165/89
--- NOTE | 2020-04-28 18:08 | NUR ---
PT ON VENT, TF INFUSING, TURNS Q2 HRS, PT NON VERBAL, PT DID NOT HAVE ANY STOOL FROM OSTOMY TODAY BUT DID HAVE SOME SEROSANGEINOUS DRAINAGE. PT TF AT GOAL WITH NO RESIDUALS. PT DRESSINGS WERE CHANGED BY RN AND WC NURSE EARLIER.
[2020-04-28 19:31] VITALS: BP 142/95
[2020-04-29 04:56] VITALS: BP 151/86
--- NOTE | 2020-04-29 07:51 | NUR ---
patients cares were assumed at shift change. patient was assessed and meds were passed. patient had a bed bath and linen complete change. hourly rounds were done and the bed is in a low and locked position.
--- NOTE | 2020-04-29 10:10 | HC ---
[facility] [place] [address] CONSULTATION Name: KELTON WANG Room #: 216-P [facility] IN M.R.#: [id number] Admission: 04/16/20 Attend Phys: Amado Vidales Discharge: Date of : 60 Report #: [id number] THIS REPORT FOR: cc: [facility] - No family physician/PCP SAMUEL - No family physician/PCP Estuardo Lombardi MD ~ CC: [facility] physician/PCP Amado Vidales GI CONSULT HISTORY OF PRESENT ILLNESS: The patient is a 59-year-old -Hungarian male who I have been asked to see for further evaluation of his significant abdominal distention and suspected ileus. His medical problems are extensive, well outlined in the chart, include necrotic sacral pressure sore with respiratory failure and chronic tracheostomy, diabetes. He has paraplegia as well. He has had elevated liver function tests, alcohol abuse, and anemia. ALLERGIES: He is allergic to no medications. MEDICATIONS: His medications currently include bisacodyl suppositories, albuterol, magnesium sulfate, Reglan 5 mg q. 6 hours p.r.n. IV push, Lovenox, vancomycin IV, famotidine, ondansetron, morphine, meropenem. FAMILY HISTORY: Noncontributory. SOCIAL HISTORY: Noncontributory. REVIEW OF SYSTEMS: Not possible. PHYSICAL EXAMINATION: GENERAL: Afebrile. VITAL SIGNS: Stable. HEENT: Not examined. CARDIOVASCULAR: Not examined. RESPIRATORY: Not examined. ABDOMEN: Reveals significantly distended abdomen with tympany and a protuberant stoma with some serosanguineous fluid in the ostomy bag. There does not appear to be any duskiness of the stoma and it is not acutely tender. EXTREMITIES: Not performed. RECTAL: Not performed. NEUROLOGIC: Not performed. PERTINENT LABORATORY DATA: Include today, hemoglobin 8.4, white count 10.0. INR 1.3. Chemistry notable for magnesium 1.6, calcium 8.1. AST, ALT, alkaline phosphatase, bilirubin normal. Albumin 1.5, total protein 6.2. [facility] [address] [place] [address] CONSULTATION Name: KATHLEENKELTON A Room #: 216-P [facility] IN M.R.#: [id number] Admission: 04/16/20 Attend Phys: Amado Vdiales Discharge: Date of : 60 Report #: [id number] IMAGING STUDIES: Reveal persistent severe paralytic ileus with widespread small bowel and colonic gaseous distention, unchanged from yesterday by KUB. He had a CT scan done on the of the abdomen and pelvis, which revealed no evidence of small bowel obstruction. ASSESSMENT AND PLAN: In summary, the patient has significant ileus without obvious obstruction. This is multifactorial due to hospitalization, bedfast, hypomagnesemia, acute infectious process, sepsis, narcotic pain medications and will improve with improvement of his clinical condition. I would avoid narcotics at this point. Consideration of a repeat CT scan would be in order if his symptoms persist. I do agree with percutaneous endoscopic gastrostomy tube, low intermittent drainage, and holding his tube feeding for now. Serial examinations and attempt to discontinue medications with anticholinergic side effects. We will follow concurrently. Thank you for allowing us to participate in the care of this man. ADDENDUM: I did discuss with the nurse the appearance of the stoma and the surgeon is currently following. <ELECTRONICALLY SIGNED> By: Albin Fam MD 04/29/20 [id number] Estuardo Lombardi MD /nt
--- NOTE | 2020-04-29 11:00 | NUR ---
Final recommended tube feed goal is 65ml/hr. [facility] surgery orders for advancing tube feed rate
--- NOTE | 2020-04-29 11:02 | NUR ---
Surgery managing tube feed rate increase. RD recommended tube feed goal is 65ml/hr terminal manager.
[2020-04-29 11:30] VITALS: BP 161/98
--- NOTE | 2020-04-29 16:57 | NUR ---
Patient with auth to transfer to [place] but no bed avial. Sp with dtr to alert possible dc over weekend. IF [place] liason calls with bed avail please fax ambulance form on chart copy. Call and arrange [facility] for transport. Notify dtr of time and call report to [place] at [phone]
[2020-04-29 18:45] VITALS: BP 157/104
--- NOTE | 2020-04-29 20:33 | NUR ---
RECEIVED PT'S CARE AROUND 724; PT. ON BED; ALERT; DR. CALLE ROUNDING ON PT. EARLY ON THE MORNING; NOTIFIED ABOUT WAITING ON COLOSTOMY TO PRODUCE STOOL; PER DR. CALLE PT. PRODUCING STOOL; DURING AM ASSESSMENT ALERT; AWAKE; NON VERBAL; LIQUID BROWN-RED IN COLOSTOMY BAG; CHECK STOMA ASSESSMENT; HOSPITALIST NOTIFIED DURING ROUNDING ABOUT DR. CALLE ASSESSMENT; NO NEW ORDERS; AM MEDICATION GIVEN; THROUGH THE DAY LOW FEEDING RESIDUAL; WOUND CARE PERFORMED; TURNED FROM SIDE TO SIDE THROUGH THE DAY; DURING THE AFTERNOON ELEVATED HR; PRN MORPHINE GIVEN AFTER DRESSING CHANGED; RE-ASSESSMENT PT. RESTING WITH EYES CLOSED; PER SUPERVISOR/PORT DIRECTOR NO AVAILABLE BED FOR PT. TODAY, 04/29/20, IF PT. D/C DURING THE WEEKEND MUST FOLLOW SUPERVISOR/PORT DIRECTOR INSTRUCTIONS ON NOTES; CHECK SUPERVISOR/PORT DIRECTOR NOTES; PASSED ON REPORT; ASSESSMENT CHARGED; FOLLOWING POC; PASSED ON REPORT;
[2020-04-29 21:04] VITALS: BP 148/87
[2020-04-30 06:20] VITALS: BP 142/73
--- NOTE | 2020-04-30 07:42 | NUR ---
ASSUMED PT CARE AT AROUND 1900, PT IS AWAKE, ALERT TO SELF, NONVERBAL AND UNABLE TO VOICE CONCERNS, ASSESSMENTS CHARTED, ST ON THE MONITOR, TUBE FEEDING IN PLACE ORDERED, MEDICATED ORDERED, BS STABLE, VSS, COVID TEST RESULTS FROM 04/29 WAS NEGATIVE,REMAINED STABLE THROUGH THE NIGHT, PASSED REPORT TO DAY NURSE
[2020-04-30 08:31] VITALS: BP 142/92
[2020-04-30 15:39] VITALS: BP 144/103
--- NOTE | 2020-04-30 16:08 | NUR ---
ASSESSMENT CHARTED. PT ALERT TO SELF. NON VERBAL. WOUNDCARE PROVIDED. CHANGED AND REPOSITIONED Q 2HRS AND NEEDED. OFF VENT. ON TRACH SHIELD. SAT ABOVE 95%. ST ON TELE. NO RESPIRATORY DISTRESS NOTED. ABX INFUSING ORDRED. TOLERATING TUBE FEEDING. COLOSTOMY BAG INTACT. NO CONCERNS AT THIS TIME. WILL CONTINUE TO MONITOR.
[2020-04-30 20:56] VITALS: BP 160/87
[2020-05-01 03:47] VITALS: BP 138/86
[2020-05-01 04:06] VITALS: BP 152/112
--- NOTE | 2020-05-01 07:29 | NUR ---
PT LYING IN BED. NO APPARENT PAIN NOTED. RESTING COMFORTABLY. FREQUENT OBSERVATION.
[2020-05-01 07:49] VITALS: BP 153/95
[2020-05-01 11:21] VITALS: BP 146/96
[2020-05-01 11:33] LABS: HEMATOCRIT 23.3 % (42.0-52.0); HEMOGLOBIN 7.6 gm/dL (14.0-18.0); MCH 26.6 pg (26.0-34.0); MCHC 32.6 g/dL (28.0-37.0); MCV 81.4 fL (80.0-100.0); RBC 2.86 mil/uL (4.50-6.00); RDW 15.4 % (10.5-14.5); WBC 5.3 thou/uL (4.0-11.0)
[2020-05-01 11:38] LABS: CALCIUM 7.8 mg/dL (8.5-10.1); CREATININE 0.5 mg/dL (0.7-1.3); MAGNESIUM 1.1 mg/dL (1.8-2.4)
[2020-05-01 15:22] VITALS: BP 153/100
--- NOTE | 2020-05-01 15:42 | NUR ---
PT ALERT. VSS. TURNED AND REPOSITIONED Q 2 HRS AND NEEDED. IV ABX GIVE ORDERED. WOUND CARE PROVIDED. TOLERATING TUBE FEEDING WELL. COLOSTOMY BAG INTACT. PROGRESSING WELL TOWARDS DISCHARGE GOAL.
[2020-05-01 19:58] VITALS: BP 152/108
--- NOTE | 2020-05-02 03:44 | NUR ---
ALERT,NONVERBAL,NO SIGNS OF DISTRESS.NO GRIMACING OR PAIN NOTED.ON TUBE FEEDING.COLOSTOMY INTACT.LYONS TO DD.MONITOR SHOWS SINUS TACHY.POC CONTINUED.
[2020-05-02 08:15] VITALS: BP 152/108
--- NOTE | 2020-05-02 09:56 | NUR ---
OSTOMY CARE; POUCH CHANGED USING RENY 2 PIECE SYSTEM, STOMA RED, VIABLE BUDDED, W/ SMALL AMT SLOUGH LEFT EDGE, LOOSE BROWN STOOL NOTED, PASSING FLATUS, ADAPT RING APPLIED UNDER WAFER, SUPPLIES AT BS, PT COOPERATIVE RECOMMENDATIONS CHANGE POUCH Q3-5 DAYS AND PRN, RENY 2 PIECE SYSTEM, W/ ADAPT RING UNDER WAFER ROTARY RIG ENGINE OPERATOR AWARE
--- NOTE | 2020-05-02 09:58 | NUR ---
WOUND CARE ASSESS WOUNDS W/ PROTECTIVE SIGNAL REPAIRER KAREEN, SEE PROCESS INTERVENTIONS FOR WOUND DETAILS, CHANGED DRSG TO SACRUM W/ 1/4% DAKINS, KERLIX SOAKED, ABD PAD, TAPE, MOST OF WOUND BEEFY RED, SCATTERED AREAS YELLOW SLOUGH, ESCHAR LEFT ANKLE WOUND, BORDER FOAM APPLIED, R HIP WOUND PINK, HEALED, COOPERATIVE, REMAINS ON LOW AIR LOSS PUMP TO BED, PHOTOS TAKEN, POSSIBLE DC TODAY RECOMMENDATIONS CONT WOUND CARE PER ORDER DR KEARNS/YAMILE, CONT LOW AIR LOSS PUMP TO BED, PRESSURE RELIEF, PRAFO BOOTS, TURN Q2 HOURS PROTECTIVE SIGNAL REPAIRER AWARE
--- NOTE | 2020-05-02 10:36 | NUR ---
Pt ready for dc to [facility] per the care team. [facility] updated and they will have a bed available tomorrow. Dc load planner to fax covid neg test and updates today.
[2020-05-02 12:30] VITALS: BP 139/90
--- NOTE | 2020-05-02 13:17 | NUR ---
FAXED CLINICAL UPDATE TO [facility] RECEIVED CONFIRMATION AND LEFT MSG WITH TONY IN ADM. ALSO INCLUDED TODAY'S COVID RESULT.
--- NOTE | 2020-05-02 15:45 | NUR ---
Nutrition Update: Pt w/ anticipated discharge to [facility] tomorrow, 05/03. Continues on TFs for sole source of nutrition. Per last RD note, surgery managing feeds/goal rate. Pt continues at 40 ml/hr on Pivot 1.5. This is only meeting ~61% estimated energy needs and 77% goal protein needs given extensive stages of pressure ulcers. Long-term TF Goal Rate recommended at 65 ml/hr when pt goes to LTAC to sufficiently meet recommended nutritional requirements per National Pressure Ulcer Advisory Panel at 30 kcals/kg for energy. ENERGY NEEDS: 2345 kcals per 30 kcals/kg PROTEIN NEEDS: minimum 117 g per 1.5 g/kg
--- NOTE | 2020-05-02 15:49 | NUR ---
RD TUBE FEEDING RECOMMENDATIONS PRIOR TO LTAC DISCHARGE: 1) Currently at 40ml/hr on Pivot 1.5; being managed by surgery. This rate only meets 61% energy needs, 77% low end protein. 2) REC long-term Goal Rate for Tube Feeds be 65 ml/hr if this same formula is continued to adequately meet heightened energy/protein needs per National Pressure Ulcer Advisory Panel. Goal of 30 kcals/kg energy. ENERGY NEEDS: 2345 kcals (30 kcals/kg) PROTEIN NEEDS: minimum 117 g (1.5 g/kg)
[2020-05-02 16:00] VITALS: BP 144/92
--- NOTE | 2020-05-02 16:28 | NUR ---
PT CARE ASSUMED AT 0700. ASSESSMENTS CHARTED. MEDICATION CHARTED. LYONS. COLOSTOMY; CHANGED BY COLOSTOMY RN. WOUND CARE PERFORMED. TUBE FEEDING AT 40 ML/HR; PIVOT 1.5. PT TO [facility] WHEN THEY CALL FOR HIM.
--- NOTE | 2020-05-02 17:02 | NUR ---
FAXED CLINICAL UPDATE TO [facility] SPOKE WITH TONY IN ADM SHE RECEIVED UPDATE.
[2020-05-02 19:39] VITALS: BP 153/94
[2020-05-03] VITALS (7 sets, daily range): BP systolic 141–168; BP diastolic 100–115
--- NOTE | 2020-05-03 07:09 | NUR ---
ALERT.PARAPLEGIC.TURN Q2 HOURS AND NEEDED.ON TUBE FEEDING.PEG TUBE INTACT.LYONS TO DD.COLOSTOMY BAG INTACT.IVF INFUSING.MONITOR SHOWS SINUS TACHY.POC CONTINUED.
--- NOTE | 2020-05-03 09:23 | NUR ---
spoke with [facility] they are awaiting if bed avail today. [facility] to alert [facility]emgt if bed avail today within a few hours updated phys.
--- NOTE | 2020-05-03 09:58 | NUR ---
WOUND CARE NOTE ASSISTED WOOD GRAINER KAREEN Jorge/ RIAN CHANGES TO SACRUM AND LEFT ANKLE, SEE PROCESS INTERVENTIONS FOR WOUND DETAILS, PHOTOS TAKEN YESTERDAY, POSSIBLE DC TODAY TO [facility]
--- NOTE | 2020-05-03 18:21 | NUR ---
PT CARE ASSUMED AT 0700. ASSESSMENTS CHARTED. MEDICATION CHARTED. WOUND CARE PERFORMED. TUBE FEEDING; PIVOT 1.5 AT 40 ML/HR. COLOSTOMY RN CHECKED PT AND APPROVED. AWAITING TRANSFER APPROVAL FROM [facility]. RT IJ 3 LUMEN; IV THERAPY APPLIED CATH CASSANDRA TO DOWLING LUMEN.
[2020-05-04 04:33] VITALS: BP 138/96
--- NOTE | 2020-05-04 07:46 | NUR ---
ASSUME CARE 1900. PT/VITALS STABLE. PT IS UNABLE TO VERBALIZE ANY NEEDS OR ANSWER ANY QUESTIONS. NOTED A FEW TIMES WHEN PT NODDED TO QUESTIONS LIKE "ARE YOU OK" AND "THANK YOU." SACRAL WOUND DRESSING DONE. WOUND APPEARS CLEAN AND VIABLE. UNABLE TO COMMUNICATE PAIN. PAIM MANAGEMENT WITH TYLENOL REGARDLESS. PT RESTING WELL. PLAN IS DISCHARGE TO [facility] SOON A BED OPENS. WILL CONTINUE TO FOLLOW WITH POC
[2020-05-04 08:00] VITALS: BP 155/99
[2020-05-04 11:30] LABS: HEMATOCRIT 25.5 % (42.0-52.0); HEMOGLOBIN 8.4 gm/dL (14.0-18.0)
[2020-05-04 12:00] VITALS: BP 160/102
[2020-05-04 16:00] VITALS: BP 150/100
--- NOTE | 2020-05-04 16:43 | NUR ---
Left message with dtr regarding no bed at [facility] today. Auth is good until tomorrow.
--- NOTE | 2020-05-04 16:49 | NUR ---
FAXED CLIMICAL UPDATE TO [facility] RECEIVED CONFIRMATION AND LEFT MSG WITH TONY IN ADM. DP TO FOLLOW.
--- NOTE | 2020-05-04 19:57 | NUR ---
ASSUMED CARE AT CHANGE OF SHIFT. ALERT, NON-VERBAL WILL NOD AT TIMES. WHITNEY FLOW CANNUAL TO TRACH. MODERATE ABOUT TO LOOSE BROWN STOOL IN COLOSTOMY, 1700 OUTPUT FROM LYONS. SACRAL WOUND DRESSING CHANGED, AND FOAM BOARDERS DRESSING TO RIGHT THIGH AND LEFT ANKLE. PT TO DISCHARGE TO [facility] ONCE BED IS AVAILABLE. PT CLOSE TO NURSES STATIONS FOR OVERSIGHT.
[2020-05-04 20:07] VITALS: BP 144/94
[2020-05-05 04:37] VITALS: BP 138/97
--- NOTE | 2020-05-05 05:39 | NUR ---
ASSUMED PT CARE AT 1900. NO SIGN OF DISTRESS NOTED IN PATIENT. TRACH, COLOSTOMY. LYONS IN PLACE. PT IS NON-VERBAL. PEG TUBE IN PLACE. NO SIGN OF DISTRESS NOTED IN PT. ASSESSMENT COMPELTED AND DOCUMENTED. REPOSITIONING. ASSESSMENT COMPLETED AND DOCUMENTED. SCHEDULED MEDS ADMINISTERED TO PT. WAITING ON BED AVAILABILITY FROM [facility]. CONTINUE NURSING POC. NO FURTHER NEEDS AT THIS TIME.
[2020-05-05 07:58] VITALS: BP 151/103
--- NOTE | 2020-05-05 10:49 | NUR ---
FOLLOWING FOR DC PLANNING. PT IS STABLE FOR TRANSITION TO [facility] LOC AWAITING BED AVAILABILITY AT [facility]. IN TOUCH THIS AM WITH [facility] AND POSSIBLE BED TODAY BASED ON DISCHARGES AT [facility]. PT IS NOW ON TRACH SHIELD 35 % CONTINUOUSLY, STILL REQUIRES BID AND PRN DRSG CHANGE TO STAGE 4 SACRAL WOUND WELL WOUND CARE TO A STAGE 2 AND A STAGE 3 AREA. ALSO ON MERREM IV Q 6 HOURS, TUBE FEEDS AND TOTAL ASSIST FOR CARES. UPDATED CLINICAL [facility]XED TO [facility] AND TALKED TO MARTHA IN ADMISSIONS WHO WILL REVIEW WITH FACILITY DON. LIKELY TOO HIGH ACUITY TO RETURN TO LTC FACILITY AND WILL NEED TO CONTINUE TO PURSUE [facility]ACH TRANSFER. MARTHA WILL CONTACT 2N CENTRAL SUPPLY AIDE AFTER REVIEW.
[2020-05-05 11:07] VITALS: BP 138/104
[2020-05-05 15:30] VITALS: BP 168/114
--- NOTE | 2020-05-05 19:01 | NUR ---
ASSUMED CARE AT CHANGE OF SHIFT. PT REMAINS STABLE. DRESSING TO WOUNDS CHANGED WITH PICTURES TAKEN IN CHART. CONTINUES ON HIGH FLOW TRACH 10L, TURNS Q2 TOLERATED. TOLERATING TUBE FEEDING AT 40CC GOAL RATE. 650 LYONS CATH. 100 LOOSE STOOL COLOSTOMY. CLOSE TO NURSE STATION FOR OVERSIGHT.
[2020-05-05 19:16] VITALS: BP 158/103
[2020-05-06 03:41] VITALS: BP 150/102
--- NOTE | 2020-05-06 05:40 | NUR ---
ASSUMED CARE OF PATIENT AT 1900. AT INITIAL ASSESSMENT PATIENT LUNGS SOUNDED COARSE WITH RHONCI IN UPPER LOBES. LUNG SOUNDS IMPROVED AFTER RT VISIT. COMPLETED WOUND CARE TO SACRAL AREA AT APPROXIMATELY 0500.
--- NOTE | 2020-05-06 07:56 | NUR ---
OSTOMY CARE NOTE; POUCH ON X 4 DAYS, CHANGED USING 2 PIECE SYSTEM RENY CUT TO FIT, STOMA PINKISH RED, VIABLE, BUDDED, LOOSE LIGHT BROWN STOOL NOTED, PERISTOMAL SKIN INTACT, ADAPT RING APPLIED UNDER WAFER, COOPERATIVE, SUPPLIES AT BS, WILL CONT TO FOLLOW RECOMMENDATIONS; CONT SAME OSTOMY CARE, RENY 2PIECE SYSTEM, CHANGE 3-5 DAYS AND PRN PROFESSOR OF GEOGRAPHY AWARE
[2020-05-06 08:30] VITALS: BP 158/107
[2020-05-06] MEDS ORDERED: IPRAT-ALBUT 0.5-3 ML INH (11:33)
--- NOTE | 2020-05-06 11:39 | NUR ---
[facility] still with no bed availability. [facility] can accept and is working on [place] for today. Message left for the pt's sister Thuan regarding above change in facility and likely dc this afternoon. CM to arrange [facility] transport for this afternoon once auth confirmed. Care team updated. Chart copy being updated.
[2020-05-06 12:12] VITALS: BP 156/110
--- NOTE | 2020-05-06 12:46 | NUR ---
FAXED CLINICAL UPDATE TO [facility] SPOKE WITH MARK IN ADM HE RECEIVED UPDATE. DP TO FOLLOW.
[2020-05-06 13:20] VITALS: BP 156/110
--- NOTE | 2020-05-06 13:27 | NUR ---
PT DISCHARGING TODAY TO [facility] FAXED DC ORDERS/SUMMARY TO FACILITY SPOKE WITH MARK IN ADM HE RECEIVED ORDERS. TRANSPORTATION ARRANGED BY AMBULANCE ([facility]) FOR 1500. NOTIFIED PT'S DTR (CARLOS) OF DC AND TIME OF TRANSPORT UNIT NOTIFIED AND CHART COPY PER US. RN TO CALL REPORT TO [phone].
== END 2020-05-06 15:36 | DRG 853 ==
LOC: ER 11:26 → 2N 15:24 → ICU 15:24 → 2N 04-18 23:16
PROVIDERS: Emergency Medicine; Hospitalist; Internal Medicine; Internal Medicine Pulmonary Disease; Nurse Practitioner Family; Pediatrics; Surgery; ADMIT Hospitalist; ATTEND Hospitalist
PROC: 5A1955Z Respiratory Ventilation, Greater than 96 Consecutive Hours (ICD-10-PCS; principal; 2020-04-16)
PROC: 0QB10ZZ Excision of Sacrum, Open Approach (ICD-10-PCS; 2020-04-19)
PROC: 30233N1 Transfusion of Nonautologous Red Blood Cells into Peripheral Vein, Percutaneous Approach (ICD-10-PCS; 2020-04-20)
PROC: 0D1N0Z4 Bypass Sigmoid Colon to Cutaneous, Open Approach (ICD-10-PCS; 2020-04-22)
DX: A41.9 Sepsis, unspecified organism (principal); L89.154 Pressure ulcer of sacral region, stage 4; L89.893 Pressure ulcer of other site, stage 3; S06.5X9A Traumatic subdural hemorrhage with loss of consciousness of unspecified duration, initial encounter; J18.9 Pneumonia, unspecified organism; R65.21 Severe sepsis with septic shock; E43 Unspecified severe protein-calorie malnutrition; J96.21 Acute and chronic respiratory failure with hypoxia; E87.1 Hypo-osmolality and hyponatremia; N39.0 Urinary tract infection, site not specified; G82.20 Paraplegia, unspecified; K56.0 Paralytic ileus; K21.9 Gastro-esophageal reflux disease without esophagitis; J45.909 Unspecified asthma, uncomplicated; I10 Essential (primary) hypertension; E11.9 Type 2 diabetes mellitus without complications; K75.9 Inflammatory liver disease, unspecified; L89.312 Pressure ulcer of right buttock, stage 2; E87.6 Hypokalemia; E83.42 Hypomagnesemia; D63.8 Anemia in other chronic diseases classified elsewhere; Z20.828 Contact with and (suspected) exposure to other viral communicable diseases; Z68.24 Body mass index [BMI] 24.0-24.9, adult; Z87.891 Personal history of nicotine dependence; Z79.899 Other long term (current) drug therapy; X58.XXXA Exposure to other specified factors, initial encounter; Y93.89 Activity, other specified; Y92.89 Other specified places as the place of occurrence of the external cause; Y99.8 Other external cause status
CPT/HCPCS: 10078; 10081; 50101; 50249; 50386; 50403; 50555; 50558; 52265; 53078; 53307; 53310; 54118; 57092; 57103; 62110; 62900